=== PATIENT | male | born 1990 | race Caucasian/White ===

== ENCOUNTER → 2016-09-02 | Outpatient (REF) | payer OTHER ==
[2016-09-02 13:00] LABS: HIV SCREEN CENTAUR NEGATIVE (NEGATIVE)
[2016-09-04 00:06] LABS: Lyme Disease IgG/IgM Antibodie <0.91 ISR (0.00-0.90); Lyme Disease IgM Ab Quantitati <0.80 index (0.00-0.79)
== END ==
LOC: M SFHCPLAZ 09:40
PROVIDERS: ATTEND Family Medicine
DX: Z11.3 Encounter for screening for infections with a predominantly sexual mode of transmission (principal)